=== PATIENT | female | born 1970 | race Caucasian/White ===

== ENCOUNTER 2019-06-14 14:57 | Emergency (ER) | payer OTHER ==
[2019-06-14 19:27] VITALS: O2SAT 99
[2019-06-14 19:30] VITALS: BP 145/108; TEMP 97.5
== END 2019-06-14 18:49 | disposition home or self-care (01) ==
LOC: ER 14:57
DX: R03.0 Elevated blood-pressure reading, without diagnosis of hypertension (principal); Z88.1 Allergy status to other antibiotic agents; Z72.0 Tobacco use
CPT/HCPCS: 36415; 80048; 80076; 81003; 81025; 83735; 83880; 84484; 85025; 85610; 93005; 99284